=== PATIENT | female | born 1955 | race Caucasian/White ===

== ENCOUNTER → 2019-03-20 | Outpatient (CLI) | payer BC ==
[~2019-03-20] MED LIST: CHOL200035 PO; COD1CAPS16 PO; CYAN10007 PO; ESOM20CA PO; EVE1000C3 PO; FAMO-119 PO; NFBIOT1000 PO; OMEG-11 PO; OXYC-199 PO; VITA400T9 PO; VITA80006 PO
--- NOTE | 2019-03-20 11:39 | Diagnostic Imaging Report ---
INDICATION: Abdominal pain. TIME OF EXAM: 11:31 a.m. FINDINGS: There are surgical clips in gallbladder fossa. Bowel gas pattern is nonobstructed. No pathologic calcifications are detected. IMPRESSION: No acute feature is detected. Dictated by: Dictated on workstation # [id number]
== END ==
LOC: RAD FS 11:27
PROVIDERS: ATTEND Nurse Practitioner Family
DX: K21.0 Gastro-esophageal reflux disease with esophagitis (principal); K44.9 Diaphragmatic hernia without obstruction or gangrene
CPT/HCPCS: 74018

== ENCOUNTER → 2020-04-18 | Outpatient (CLI) | payer MEDICARE, BC | LOC: LAB FS 09:00 | PROVIDERS: ATTEND Orthopaedic Surgery | DX: Z01.812 Encounter for preprocedural laboratory examination (principal); Z20.822 Contact with and (suspected) exposure to COVID-19 | CPT/HCPCS: 87635 ==

== ENCOUNTER 2020-09-12 06:28 | Outpatient (CLI) | payer MEDICARE, BC ==
[~2020-09-12] VITALS: Ht 157.5 cm; Wt 88.6 kg
[2020-09-14] MEDS ORDERED: BACL10TA PO (09:05)
[2020-09-14] MEDS ORDERED: PSEU60TA88 PO (09:05)
[2020-09-14] MEDS ORDERED: CHOL200014 PO (09:05)
== END 2020-09-14 09:17 | disposition home or self-care (01) ==
LOC: PREOP 06:28
PROVIDERS: ATTEND Specialist
DX: Z01.818 Encounter for other preprocedural examination (principal)

== ENCOUNTER 2020-09-16 10:46 | Day surgery (SDC) | payer MEDICARE, BC ==
[~2020-09-16] VITALS: Ht 157.5 cm; Wt 88.6 kg
[~2020-09-16 10:46] MED LIST changes: +BACL10TA PO; +CHOL200014 PO; +PSEU60TA88 PO
[2020-09-16] MEDS ORDERED: POVIDONE (BETADINE) OPHTH SOLN 5% 30 ML OP ONE (11:00)
[2020-09-16] MEDS ORDERED: MOXIFLOXACIN OPHTH SOLN 5 MG/ML 0.3 ML SYRINGE OP ONE (11:00)
[2020-09-16] MEDS ORDERED: TIMOLOL MALEATE 0.5% 5 ML (TIMOPTIC) BTL OU PRN (11:00)
[2020-09-16] MEDS ORDERED: LIDOCAINE PF 1% 2 ML VIAL IR PRN (11:00)
[2020-09-16] MEDS: TETRACAINE 0.5% OPHTH SOLN 4 ML BTL (SINGLE DOSE ONLY) OU PRN ×4 (11:05→11:22)
[2020-09-16] MEDS: PHENYLEPHRINE 10% OPHTH (NEO-SYN) 5 ML BTL OU SCH ×2 (11:12→11:17)
[2020-09-16] MEDS: TROPICAMIDE 1% OPH SOLN (MYDRIACYL) 15 ML BTL OP SCH ×3 (11:12→11:22)
[2020-09-16 11:14] VITALS: BP 160/93
[2020-09-16] MEDS ORDERED: MIDAZOLAM 2 MG/2 ML (VERSED) VIAL ONE (11:14)
--- NOTE | 2020-09-16 11:53 | Ophthalmologist Pre-Op Note ---
Pre-Operative Progress Note H&P Reviewed The H&P was reviewed, patient examined and no changes noted. Date H&P Reviewed: Sep 16, 2020 Time H&P Reviewed: 11:52 Pre-Op Dx Cataract, Right Eye KAT COTTER MD Sep 16, 2020 11:52
--- NOTE | 2020-09-16 12:16 | Ophthalmology Operative Report ---
Cataract removal/placement IOL PREOPERATIVE DIAGNOSIS: Cataract Right Eye POSTOPERATIVE DIAGNOSIS: Cataract Right Eye PROCEDURE: Cataract removal and placement of posterior chamber implant, right eye SURGEON: Yoshi Cotter ANESTHESIA: Topical with sedation COMPLICATIONS: None ESTIMATED BLOOD LOSS: Minimal DESCRIPTION OF PROCEDURE: After proper informed consent was obtained, the patient, a 65 female, was taken to the Operating Room and the right eye was anesthetized with tetracaine. The right eye was then prepped and draped in the usual manner. A wire lid speculum was placed. A paracentesis was made at the left hand position. Preservative free lidocaine was injected into the anterior chamber followed by viscoelastic. A clear corneal incision was made in the temporal position. A capsulorrhexis was preformed and the central nuclear and cortical material were removed. The posterior capsule was polished and Claude 17.0 AU00T0 IOL was placed into the capsular bag. The residual viscoelastic was aspirated and balanced saline solution was injected into the anterior chamber. Moxifloxacin was injected into the anterior chamber. The wound was checked and found to be water tight. The patient tolerated the procedure well without complications. YOSHI COTTER MD Sep 16, 2020 12:16
[2020-09-16 12:27] VITALS: BP 147/81
--- NOTE | 2020-09-16 12:56 | Anesthesia-General Post-Op ---
MAC Patient Condition Mental Status/LOC: Same as Preop Cardiovascular: Satisfactory Nausea/Vomiting: Absent Respiratory: Satisfactory Pain: Controlled Complications: Absent Post Op Complications Complications None Follow Up Care/Instructions Patient Instructions None needed. Anesthesiology Discharge Order Discharge Order Patient is doing well, no complaints, stable vital signs, no apparent adverse anesthesia problems. No complications reported per nursing. GODWIN TINEO CRNA Sep 16, 2020 12:56
== END 2020-09-16 12:29 | disposition home or self-care (01) ==
LOC: SDC 10:46
PROVIDERS: ATTEND Specialist
DX: H25.11 Age-related nuclear cataract, right eye (principal); K21.9 Gastro-esophageal reflux disease without esophagitis; M19.90 Unspecified osteoarthritis, unspecified site; E16.2 Hypoglycemia, unspecified; E78.00 Pure hypercholesterolemia, unspecified; Z87.891 Personal history of nicotine dependence; Z79.899 Other long term (current) drug therapy
CPT/HCPCS: 66984; V2632

== ENCOUNTER 2020-09-30 09:39 | Day surgery (SDC) | payer MEDICARE, BC ==
[~2020-09-30] VITALS: Ht 157.5 cm; Wt 88.6 kg
[2020-09-30] MEDS ORDERED: TIMOLOL MALEATE 0.5% 5 ML (TIMOPTIC) BTL OU PRN (09:45)
[2020-09-30] MEDS ORDERED: LIDOCAINE PF 1% 2 ML VIAL IR PRN (09:45)
[2020-09-30] MEDS ORDERED: POVIDONE (BETADINE) OPHTH SOLN 5% 30 ML OP ONE (09:45)
[2020-09-30] MEDS ORDERED: MOXIFLOXACIN OPHTH SOLN 5 MG/ML 0.3 ML SYRINGE OP ONE (09:45)
[2020-09-30] MEDS: TETRACAINE 0.5% OPHTH SOLN 4 ML BTL (SINGLE DOSE ONLY) OU PRN ×4 (09:57→10:13)
[2020-09-30] MEDS: PHENYLEPHRINE 10% OPHTH (NEO-SYN) 5 ML BTL OU SCH ×3 (10:03→10:13)
[2020-09-30] MEDS: TROPICAMIDE 1% OPH SOLN (MYDRIACYL) 15 ML BTL OP SCH ×3 (10:03→10:13)
[2020-09-30 10:05] VITALS: BP 146/89
[2020-09-30] MEDS ORDERED: MIDAZOLAM 2 MG/2 ML (VERSED) VIAL ONE (10:10)
--- NOTE | 2020-09-30 10:16 | Ophthalmologist Pre-Op Note ---
Pre-Operative Progress Note H&P Reviewed The H&P was reviewed, patient examined and no changes noted. Date H&P Reviewed: Sep 30, 2020 Time H&P Reviewed: 10:16 Pre-Op Dx Cataract, Left Eye KAT COTTER MD Sep 30, 2020 10:16
--- NOTE | 2020-09-30 10:40 | Ophthalmology Operative Report ---
Cataract removal/placement IOL PREOPERATIVE DIAGNOSIS: Cataract Left Eye POSTOPERATIVE DIAGNOSIS: Cataract Left Eye PROCEDURE: Cataract removal and placement of posterior chamber implant, left eye SURGEON: Yoshi Cotter ANESTHESIA: Topical with sedation COMPLICATIONS: None ESTIMATED BLOOD LOSS: Minimal DESCRIPTION OF PROCEDURE: After proper informed consent was obtained, the patient, a 65 female, was taken to the Operating Room and the left eye was anesthetized with tetracaine. The left eye was then prepped and draped in the usual manner. A wire lid speculum was placed. A paracentesis was made at the left hand position. Preservative free lidocaine was injected into the anterior chamber followed by viscoelastic. A clear corneal incision was made in the temporal position. A capsulorrhexis was preformed and the central nuclear and cortical material were removed. The posterior capsule was polished and an Claude 16.5 AU00T0 was placed into the capsular bag. The residual viscoelastic was aspirated and balanced saline solution was injected into the anterior chamber. Moxifloxacin was injected into the anterior chamber. The wound was checked and found to be water tight. The patient tolerated the procedure well without complications. YOSHI COTTER MD Sep 30, 2020 10:40
[2020-09-30 10:47] VITALS: BP 154/94
--- NOTE | 2020-09-30 13:18 | Anesthesia-General Post-Op ---
MAC Patient Condition Mental Status/LOC: Same as Preop Cardiovascular: Satisfactory Nausea/Vomiting: Absent Respiratory: Satisfactory Pain: Controlled Complications: Absent Post Op Complications Complications None Follow Up Care/Instructions Patient Instructions None needed. Anesthesiology Discharge Order Discharge Order Patient was doing well after the procedure with no complaints, stable vital signs, no apparent adverse anesthesia problems. KSENIA PEARSON DO Sep 30, 2020 13:18
== END 2020-09-30 10:57 ==
LOC: SDC 09:39
PROVIDERS: ATTEND Specialist
DX: H25.12 Age-related nuclear cataract, left eye (principal); K21.9 Gastro-esophageal reflux disease without esophagitis; M19.90 Unspecified osteoarthritis, unspecified site; E78.00 Pure hypercholesterolemia, unspecified; E16.2 Hypoglycemia, unspecified; Z79.899 Other long term (current) drug therapy; Z87.891 Personal history of nicotine dependence
CPT/HCPCS: 66984; V2632